=== PATIENT | female | born 1980 | race Caucasian/White ===

== ENCOUNTER → 2017-08-10 17:06 | Outpatient (REF) | payer OTHER, SELFPAY | LOC: LAB 17:06 | PROVIDERS: Visit Provider Family Medicine | DX: Z34.90 Encounter for supervision of normal pregnancy, unspecified, unspecified trimester (principal) | CPT/HCPCS: 87081 ==

== ENCOUNTER 2017-08-29 06:56 | Inpatient (IN) | payer OTHER, SELFPAY ==
[2017-08-29] VITALS (8 sets, daily range): BP systolic 106–126; BP diastolic 43–67; PULSE 62–67; RESP 14–16; TEMP 35.9–36.1; O2SAT 94–96
[2017-08-29] MEDS: LACTATED RINGERS 1,000 ML 100 ML IV ×2 (07:45→08:52)
[2017-08-29 08:33] LABS: Hemoglobin 12.7 g/dL (12.0-16.0); Mean Corpuscular HGB Conc 34.3 % (30-36); Mean Corpuscular Hemoglobin 30.9 PG (26-34); Mean Corpuscular Volume 90.1 fL (80-100); Platelet Count 209 X10^3/uL (150-400); Red Cell Distribution Width 14.3 % (11.6-14.8); White Blood Cell Count 9.8 X10^3/uL (4.5-11.0)
[2017-08-29 08:35] LABS: Add Manual Diff / Slide Review YES
--- NOTE | 2017-08-29 08:35 | SUR.OPER ---
Supine on Padded OR bed, head on pillow, safety belt at thigh, arms secured on padded arm boards at <90 degrees abduction. Bump under right buttock. Legs uncrossed with pillow under knees, gel pad to heels, tape over blanket to lower legs.
--- NOTE | 2017-08-29 08:36 | PM.OBHP.1 ---
OB HPI Date/Time Date of admission: 08/29/17 Date Patient Seen: 08/29/17 Time Patient Seen: 08:42 History of Present Illness Chief complaint: Narrative: Purnima Mejía is a 37 year old female with gestational age at 39 weeks estimated who presents for repeat section. Patient has not had any complications during this . She has been doing well. labs were all within normal limits. Growth has been normal. followed by Dr. Burgos. Only issue is been her advanced maternal age which she had normal cell free DNA. No other changes. Patient otherwise healthy and happy. No major issues. Past Ob. Breech presentation attempted version failed. Primary . Past medical history not significant Habits no smoking no alcohol no drug use. Past surgical history x1. Allergies penicillin Medications ferrous sulfate multivitamin Family history of melanoma no other significant issue. A positive antibody screen negative all other labs negative including 1 hr glucose at 89. Evaluation Evaluation Laboratory results: Laboratory Tests 08/29/17 08:25 WBC 9.8 RBC 4.10 Hgb 12.7 Hct 37.0 MCV 90.1 MCH 30.9 MCHC 34.3 RDW 14.3 Plt Count 209 Neut % (Auto) Not Reportable Lymph % (Auto) Not Reportable [place] % (Auto) Not Reportable Eos % (Auto) Not Reportable Baso % (Auto) Not Reportable PFSH Social History Smoking Status: Never smoker Meds Home Medications Medication Instructions Recorded Confirmed Type MULTIVITAMIN/MINERALS (ICAPS PLUS) 1 tab PO QDAY #0 06/09/16 History vitamin D3-folic acid [Ciferex] 1 cap PO #0 06/09/16 History ferrous sulfate [iron] 325 mg PO DAILY 08/29/17 08/29/17 History Allergies Allergy/AdvReac Type Severity Reaction Status Date / Time Penicillins [PENICILLINS] Allergy Unknown Unverified 06/20/17 12:18 Exam Vital Signs (past 8 hours): Vital Signs - 8 hr 08/29/17 08:13 Blood Pressure 126/67 H Narrative Exam Narrative: Alert female no acute distress smiling interactive Lungs are clear. Heart regular rate and rhythm without murmur. Abdomen is gravid nontender vertex extremities without cyanosis clubbing edema. Neurologic exam normal reflexes. Objective Labs Result Diagrams: 08/29/17 08:25 Labs: Laboratory Results - last 24 hr 08/29/17 08:25 WBC 9.8 RBC 4.10 Hgb 12.7 Hct 37.0 MCV 90.1 MCH 30.9 MCHC 34.3 RDW 14.3 Plt Count 209 Neut % (Auto) Not Reportable Lymph % (Auto) Not Reportable [place] % (Auto) Not Reportable Eos % (Auto) Not Reportable Baso % (Auto) Not Reportable Assessment and Plan Plan: Plan: Thirty-nine week gestational age intrauterine stable here for repeat section.
[2017-08-29] MEDS: CITRIC ACID/SODIUM CITRATE 30 ML SOLUTION PO (08:56)
[2017-08-29] MEDS: LACTATED RINGERS 1,000 ML 42 ML IV (09:05)
[2017-08-29 09:08] LABS: Neutrophils Absolute Manual 7938 /uL (3000-5900); Total Cells Counted 100
[2017-08-29] MEDS: CEFOTETAN 2 GM/50 ML PIGGYBACK IV (09:08)
--- NOTE | 2017-08-29 10:05 | SUR.OPER ---
VIABLE MALE INFANT DELIVERED AT 0943. PLACENTA AND CORD BLOOD IN LABELED CONTAINER WITH OB RN
--- NOTE | 2017-08-29 10:52 | P.OP_ITS ---
Operative Date/Time/Diagnoses - Date of procedure: 08/29/17 Time of procedure: 10:43 Pre-op diagnosis: Urine 39 week intrauterine previous Post-op diagnosis: same Procedure & Clinicians Procedure: Secondary low transverse section Same procedure as scheduled: Yes Indications: Term intrauterine with previous section Surgeon: Wilmer Bravo Maintenance Director: Liana Burgos Anesthesia Type: Spinal Operative Notes Findings: Viable male infant 8 lb 3 oz. Apgars 9 and 9. Normal pelvic organs Closure Type: primary Specimen(s): none sent Implants & Drains: None Applied: catheter Estimated Blood Loss (mL): 500 Procedure in detail: Consent was signed in clinic. We discussed this morning. Patient was taken to the operative theater through wheelchair and placed on the operative table in the sitting position. Spinal was placed by anesthesiologist. No complications. She was placed in the supine position with a wedge under her right hip. Prepped and draped in the usual manner. Troy was placed prior to procedure. Scopes protocol was followed. Pfannenstiel incision was made without complications down to the fascia. Moderate amount of scar tissue was present. The scope fascia was then scored with scalpel and extended with curved scissors. Elevated fashion without complications. Moderate amount of scar tissue between the muscle layer and was in the superior aspect of the wound. The peritoneum was identified and elevated with hemostats. A small incision was made and blunt dissection was used to open and identify peritoneum which was bluntly entered. This was bluntly divided. There is moderate amount of scar tissue in the muscle layer of fascia layer and this was taken down with combination of scissors and hemo cautery. No bleeding was noted. Bladder blade was placed. Bladder flap was then incised and developed. Bladder blade was placed into the bladder flap. A low transverse incision was then incised on the uterus without complications. Extended wants clear fluid was noted bluntly. Baby's head was then delivered without complications. Nuchal cord x1 which was remote. Bulb suction of mouth and nose. Child was crying lustily. Breast just was delivered and cord was cut and handed off to nurse. Cord bloods were obtained. Placenta was delivered manually intact. Uterine contents was wiped with a wet lap sponge. This was repeated. No products of conception were remaining. Incision is grasped with ring forceps on each corner. Along with the inferior aspect of the wound. Forced readings were placed through the cervix into the vagina and handed off the operative theater. Uterus was closed with running locked 0 chromic. A 2nd imbricating stitch was then running without complications. No bleeding was noted. Irrigation was done to the abdominal contents. Removed. Re-evaluated bleeding none was found. Bladder flap was then closed with running 3 0 Vicryl. Peritoneum was then closed with running 2 0 Vicryl. Two interrupted 2 0 sutures were used to approximate the muscle layer. Running 1 Vicryl was used to close the fascia. 330 Vicryl interrupted sutures were used to close the subcutaneous tissue after irrigation in removal. Wound was closed with 4 0 running Vicryl. Subcuticular. Steri-Strips and dressing applied. Mother and infant were in stable condition. EBL 500 cc. Complications: none Condition: stable Disposition: Acute Care Plan for aftercare: Transferred to recovery when stable. Routine care. He is
--- NOTE | 2017-08-29 11:13 | SUR.PHASEI ---
recieved pt with LR hanging with 600cc left in bag, per Dr Silva, this is bag #2, tootal fluids for pt from OR are 1400. report givien to JOSH Sandhu in center.
[2017-08-29] MEDS: IBUPROFEN 600 MG TABLET PO ×2 (12:16→22:43)
[2017-08-29] MEDS: DEXTROSE 5%-LACTATED RINGERS 1,000 ML 100 ML IV ×2 (13:15→21:12)
[2017-08-29] MEDS: PRENATAL VIT,CALC/IRON/FOLIC 1 TABLET 1 TAB PO (22:42)
[2017-08-29] MEDS: DOCUSATE 250 MG CAPSULE PO (22:43)
[2017-08-29] MEDS: OXYCODONE/ACETAMINOPHEN 5/325 TABLET 1 TAB PO (22:43)
[2017-08-30] MEDS: OXYCODONE/ACETAMINOPHEN 5/325 TABLET 1 TAB PO ×2 (04:22→09:09)
[2017-08-30] MEDS: IBUPROFEN 600 MG TABLET PO ×3 (04:22→21:16)
[2017-08-30] MEDS: PRENATAL VIT,CALC/IRON/FOLIC 1 TABLET 1 TAB PO (09:08)
[2017-08-30] MEDS: DOCUSATE 250 MG CAPSULE PO ×2 (09:08→22:12)
--- NOTE | 2017-08-30 13:20 | PM.OBPN.1 ---
Subjective - OB Interval history: Feeling good without complaints. Urinating well without any difficulty. Troy removed this morning. No stool yet but tolerating p.o. without difficulty. Had 1 episode of emesis last night but nausea has resolved since then. She is not having any significant incisional pain as on and she takes that it Percocet but might benefit from 2 tablets at a time. is going well. baby status: doing well feeding status: exclusively breast feeding Date Patient Seen: 08/30/17 Time Patient Seen: 13:22 Exam Vital Signs (past 8 hours): Pulse Oximetry 96 Oxygen Delivery Method Room Air Narrative Exam Narrative: AF, vss Alert and oriented x3 Chest: Clear to auscultation bilaterally Cor: Regular rate and rhythm without murmur <del>Abdomen:</del> <del>Positive</del> <del>bowel</del> <del>sounds</del> <del>soft,</del> <del>uterus</del> <del>nontender</del> <del>and</del> <del>just</del> <del>below</del> <del>the</del> <del>umbilicus</del> <del>Incision</del> <del>clean</del> <del>and</del> <del>dry</del> Extremities: Trace edema, 2+ DTRs Objective Labs Result Diagrams: 08/29/17 08:25 Assessment & Plan Time Spent With Patient Total time spent is greater than 50% in coordination of care (as documented) at patient's floor/unit and/or counseling patient: 20 min Term gestation postop day 1. Status post repeat Elective Mom doing great Will check a CBC today Will increase stool softener to twice daily and increase Percocet 1-2 tablets every 4 hr as needed I anticipate discharge home tomorrow or Sunday 25 - 35 minutes
--- NOTE | 2017-08-30 13:24 | P.PNOB_ITS ---
Subjective - OB Interval history: Feeling good without complaints. Urinating well without any difficulty. Troy removed this morning. No stool yet but tolerating p.o. without difficulty. Had 1 episode of emesis last night but nausea has resolved since then. She is not having any significant incisional pain as on and she takes that it Percocet but might benefit from 2 tablets at a time. is going well. baby status: doing well feeding status: exclusively breast feeding Date Patient Seen: 08/30/17 Time Patient Seen: 13:22 Exam Vital Signs (past 8 hours): Pulse Oximetry 96 Oxygen Delivery Method Room Air Narrative Exam Narrative: AF, vss Alert and oriented x3 Chest: Clear to auscultation bilaterally Cor: Regular rate and rhythm without murmur Abdomen: Positive bowel sounds soft, uterus nontender and just below the umbilicus Incision clean and dry Extremities: Trace edema, 2+ DTRs Objective Labs Result Diagrams: 08/29/17 08:25 Assessment & Plan Time Spent With Patient Total time spent is greater than 50% in coordination of care (as documented) at patient's floor/unit and/or counseling patient: 20 min Term gestation postop day 1. Status post repeat Elective Mom doing great Will check a CBC today Will increase stool softener to twice daily and increase Percocet 1-2 tablets every 4 hr as needed I anticipate discharge home tomorrow or Sunday 25 - 35 minutes
[2017-08-30] MEDS: OXYCODONE/ACETAMINOPHEN 5/325 TABLET 2 TAB PO ×3 (13:36→22:09)
[2017-08-30 14:15] LABS: Add Manual Diff / Slide Review NO; Basophils Percent Auto 0.8 % (0-2); Eosinophils Percent Auto 0.8 % (2-4); Hematocrit 34.8 % (36-46); Hemoglobin 11.8 g/dL (12.0-16.0); Lymphocytes Percent Auto 14.1 % (25-40); Mean Corpuscular HGB Conc 33.8 % (30-36); Mean Corpuscular Hemoglobin 30.5 PG (26-34); Mean Corpuscular Volume 90.2 fL (80-100); Monocytes Percent Auto 8.4 % (3-14); Neutrophils Absolute Auto 9300 /uL (3000-5900); Neutrophils Percent Auto 75.9 % (50-75); Platelet Count 213 X10^3/uL (150-400); Red Blood Cell Count 3.86 X10^6/uL (4.0-5.2); Red Cell Distribution Width 14.4 % (11.6-14.8); White Blood Cell Count 12.2 X10^3/uL (4.5-11.0)
[2017-08-31] MEDS: OXYCODONE/ACETAMINOPHEN 5/325 TABLET 2 TAB PO ×4 (01:47→13:37)
[2017-08-31] MEDS: LANOLIN OINT 7 GM 1 APPLIC TOP (03:07)
[2017-08-31] MEDS: IBUPROFEN 600 MG TABLET PO ×2 (03:08→09:22)
--- NOTE | 2017-08-31 08:07 | P.DS_ITS ---
Discharge Providers Date of admission: 08/29/17 06:56 Primary care physician: Wilmer Bravo MD Consults: 08/29/17 11:48 Consult to Membership Director Routine Comment: Discharge provider: Wilmer Bravo MD Summary Date Patient Seen: 08/31/17 Time Patient Seen: 08:04 Peripartum Data Delivery Method: Section Procedures: Secondary low transverse section complications: none Status at Discharge Functional status at discharge: independent ambulation Overall status at discharge: patient is progressing back to baseline Time Spent with Patient Total patient was brought back from recovery and did well. Day 1 she was up urine was doing well. She had her Troy discontinued. Was urinating well. Tolerating p.o. well. Did have some increased gas on day 1 with some increased pain but otherwise has been feeling well. Ambulating well. Tolerating p.o. a.m.. Positive flatus. is going well. No major issues. Patient requesting go home. Pain was well controlled today. Feeling better. Other changes. Specific discharge activities: Patient had long discussion about wound care. Signs of infection. Questions were answered. depression discussed. control was discussed are not sure what they want to do with her thinking about psych to me. No other changes. Patient is to call if increasing pain, fever, bleeding, or redness of the wound. No lifting greater than 15 lb. No other changes. Patient will follow up in 2 weeks. Time spent discussing smoking cessation with patient: more than 10 minutes Objective Labs Result Diagrams: 08/30/17 14:10 Labs: Laboratory Results - last 24 hr 08/30/17 14:10 WBC 12.2 H RBC 3.86 L Hgb 11.8 L Hct 34.8 L MCV 90.2 MCH 30.5 MCHC 33.8 RDW 14.4 Plt Count 213 Neut % (Auto) 75.9 H Lymph % (Auto) 14.[address] [place] % (Auto) 8.4 Eos % (Auto) 0.8 L Baso % (Auto) 0.8 Neut # (Auto) 9300 H Discharge Plan Discharge Plan Patient Disposition: Home, Self-Care Discharge Med Rec/Prescriptions Prescriptions: New docusate sodium 250 mg Capsule 250 mg PO BID Qty: 60 RF: 1 oxycodone-acetaminophen 5-325 mg Tablet 1 tab PO Q4HR PRN (Reason: Pain, Moderate) Qty: 42 RF: 0 ibuprofen 600 mg Tablet 600 mg PO Q6HR PRN (Reason: As Needed For Fever/Mild Pain) Qty: 90 RF: 1 Continue MULTIVITAMIN/MINERALS (ICAPS PLUS) 1 tab PO QDAY Qty: 0 RF: 0 vitamin D3-folic acid [Ciferex] 3,775 UNITS/1 MG capsule 1 cap PO DAILY Qty: 0 RF: 0 ferrous sulfate [iron] 325 mg (65 mg iron) Tablet 325 mg PO DAILY RF: 0 Follow up/Referrals: Wilmer Bravo MD [Primary Care Provider] - (Follow-up 2 weeks please call for appointment) Provider Discharge Instructions Diet: Diet as Tolerated Activity: No lifting greater than 15 lb. No abdominal exercise for 6 weeks. Wound Care Other wound treatment: Usual wound treatment. Keep dry. Watch for signs of infection. If Discharge Data Primary Care Provider: Wilmer Bravo Attending Provider: Wilmer Bravo Admit Date/Time: 08/29/17 06:56
[2017-08-31] MEDS: PRENATAL VIT,CALC/IRON/FOLIC 1 TABLET 1 TAB PO (09:22)
[2017-08-31] MEDS: DOCUSATE 250 MG CAPSULE PO (09:22)
[2017-08-31 09:43] VITALS: BP 115/50; PULSE 67; RESP 16; TEMP 35.9
== END 2017-08-31 13:38 | disposition home or self-care (01) | DRG 766 ==
PROVIDERS: Family Medicine; Admitting Provider Family Medicine; PCP Family Medicine; Visit Provider Family Medicine
PROC: 10D00Z1 Extraction of Products of Conception, Low, Open Approach (ICD-10-PCS; CPT 59514; principal; 2017-08-29 08:45)
DX: O34.219 Maternal care for unspecified type scar from previous cesarean delivery (principal); Z37.0 Single live birth; Z3A.39 39 weeks gestation of pregnancy
CPT/HCPCS: 36415; 59050; 85025; 86850; 86900; 86901; J2274; J2590; J7121

== ENCOUNTER → 2018-12-19 09:57 | Outpatient (CLI) | payer OTHER, SELFPAY ==
--- NOTE | 2018-12-19 | DI.RAD.S_ITS ---
PROCEDURE: XR FINGER RT MIN 2V INDICATIONS: RT FINGER PAIN TECHNIQUE: AP hand, 2 views of the fifth finger(s) acquired. COMPARISON: None. FINDINGS: Bones: Nondisplaced ill-defined lucency is present within the distal tuft of the fifth digit. No suspicious bony lesions. Soft tissues: No suspicious soft tissue calcifications. IMPRESSION: Ill-defined distal fifth tuft lucency suggestive of nondisplaced fracture. Dictated by: Halley Gan M.D. on 12/19/2018 at 11:30 Approved by: Halley Gan M.D. on 12/19/2018 at 11:31
--- NOTE | 2018-12-19 | DI.RAD.S_ITS ---
PROCEDURE: XR ANKLE LT MIN 3V INDICATIONS: LT ANKLE PAIN TECHNIQUE: 3 views of the ankle were acquired. COMPARISON: None. FINDINGS: Bones: No fractures or dislocations. Ankle mortise is normally aligned. No suspicious bony lesions. Soft tissues: No tibiotalar joint effusion. Achilles tendon appears normal. IMPRESSION: No visualized acute fracture or dislocation. However, if clinical concern and/or pain persist, short interval imaging followup in 7-10 days is recommended, as occult injury cannot be definitively excluded. Dictated by: Halley Gan M.D. on 12/19/2018 at 11:29 Approved by: Halley Gan M.D. on 12/19/2018 at 11:30
== END ==
PROVIDERS: PCP Family Medicine; Visit Provider Family Medicine
DX: M25.572 Pain in left ankle and joints of left foot (principal); M79.644 Pain in right finger(s)
CPT/HCPCS: 73140; 73610